=== PATIENT | male | born 1970 | race African-American/Black ===

== ENCOUNTER 2023-02-07 21:20 | Emergency (ER) | payer OTHER ==
[~2023-02-07] VITALS: Ht 172.7 cm; Wt 77.3 kg
[~2023-02-07 21:20] MED LIST: HYDR-3706 PO; IBUP-1492 PO
[2023-02-07 21:36] VITALS: BP 114/75; PULSE 70; RESP 16; TEMP 98.4
== END 2023-02-07 22:29 | disposition left against medical advice (07) ==
LOC: EMS 21:22
DX: R07.0 Pain in throat (principal); Z53.21 Procedure and treatment not carried out due to patient leaving prior to being seen by health care provider
CPT/HCPCS: 99281; Z7502

== ENCOUNTER 2024-02-28 21:29 | Emergency (ER) | payer OTHER ==
[~2024-02-28] VITALS: Ht 172.7 cm; Wt 75.9 kg
[2024-02-28 21:40] VITALS: TEMP 97.7
[2024-02-28 22:50] VITALS: BP 121/77; PULSE 68; RESP 16; O2SAT 98
[2024-02-28] MEDS: METHOCARBAMOL 500 MG TABLET PO ONE (23:52)
[2024-02-28] MEDS: IBUPROFEN 600 MG TABLET PO ONE (23:52)
[2024-02-28] MEDS: HYDROCODONE/ACETAMINOPHEN 5-325 MG TABLET PO ONE (23:52)
[2024-02-28] MEDS ORDERED: METH-659 PO (23:57)
[2024-02-28] MEDS ORDERED: HYDR-4072 PO (23:57)
[2024-02-28] MEDS ORDERED: IBUP-1554 PO (23:57)
== END 2024-02-29 00:16 | disposition home or self-care (01) ==
LOC: EMS 21:29
DX: S83.91XA Sprain of unspecified site of right knee, initial encounter (principal); M17.11 Unilateral primary osteoarthritis, right knee; X58.XXXA Exposure to other specified factors, initial encounter; Y93.89 Activity, other specified; Y92.89 Other specified places as the place of occurrence of the external cause; Y99.8 Other external cause status
CPT/HCPCS: 29505; 99284; 73562-TC; Z7502; Z7610

== ENCOUNTER 2025-03-01 20:27 | Emergency (ER) | payer OTHER ==
[~2025-03-01] VITALS: Ht 172.7 cm; Wt 77.3 kg
[~2025-03-01 20:27] MED LIST changes: +HYDR-4072 PO; +IBUP-1554 PO; +METH-659 PO
[2025-03-01 20:46] VITALS: TEMP 97.5
[2025-03-01 21:07] LABS: APPEARANCE,URINE CLEAR (CLEAR); GLUCOSE, URINE (UA) NEGATIVE (NEGATIVE); LEUKOCYTE ESTERASE ,URINE NEGATIVE (NEGATIVE); NITRATE,URINE NEGATIVE (NEGATIVE); OCCULT BLOOD,URINE NEGATIVE (NEGATIVE); SPECIFIC GRAVITIY, URINE 1.027 (1.003-1.030)
[2025-03-01 21:17] LABS: SQUAMOUS EPITHELIAL CELL,UR Rare /LPF (None Seen)
[2025-03-01 22:24] LABS: PLATELET COUNT (AUTO) 228 K/uL (150-450); RED BLOOD CELL COUNT(AUTO) 4.60 MIL/uL (4.50-5.90); RED CELL DISTRIBUTION WIDTH 15.0 % (11.5-14.5); WHITE BLOOD COUNT (AUTO) 4.3 K/uL (4.5-11.0)
[2025-03-01 22:34] LABS: CALCIUM, TOTAL 8.1 mg/dL (8.8-10.5); CREATININE 0.94 mg/dL (0.60-1.30); GLOMERULAR FILTR. RATE CALC > 60 mL/min (>60); GLUCOSE,RANDOM 98 mg/dL (70-110); SODIUM SERUM 138 mmol/L (136-145); UREA NITROGEN, BLOOD 12 mg/dL (7-18)
[2025-03-01 22:38] LABS: ASPARTATE AMINOTRANSFERASE 16.0 U/L (15-37); TOTAL PROTEIN, SERUM 6.4 g/dL (6.4-8.2)
[2025-03-02 00:13] VITALS: BP 118/77; PULSE 60; RESP 16; O2SAT 98
== END 2025-03-02 01:27 | disposition home or self-care (01) ==
LOC: EMS 20:27
DX: K40.90 Unilateral inguinal hernia, without obstruction or gangrene, not specified as recurrent (principal); R10.31 Right lower quadrant pain; F12.90 Cannabis use, unspecified, uncomplicated; Z98.890 Other specified postprocedural states; Z79.899 Other long term (current) drug therapy
CPT/HCPCS: 74018; 74176; 80048; 80076; 81001; 83690; 85025; 93005; 99285; 36415-L1; 36415-TC